=== PATIENT | female | born 1955 | race Caucasian/White ===

== ENCOUNTER 2018-05-15 17:32 | Inpatient (IN) | payer OTHER ==
[~2018-05-15] VITALS: Ht 165.1 cm; Wt 71.7 kg
[~2018-05-15 17:32] MED LIST: CEFDINIR300 MG PO; COLACE100 MG PO; FLEXERIL PO; GABAPENTIN 100100 MG PO; IBUPROFEN 600600 M1 PO; KEFLEX500 MG PO; MACROBID 100 M100 M1 PO; NAPROSYN500 MG PO; NORCO 5-325 TA1 EACH PO; POLYSPORIN OINT15 GM TP; SENNA-DOCUSATE1 EACH PO; TESSALON PERLE100 MG PO; TRAMADOL 50 MG50 MG PO; ZOFRAN ODT4 MG PO
[2018-05-15 17:45] VITALS: BP 153/84
[2018-05-15 18:42] LABS: ABSOLUTE NEUTROPHILS 9.1 thou/uL (1.4-8.2); BASOPHILS 0.6 % (0.0-2.0); EOSINOPHILS 0.6 % (0.0-3.0); HEMATOCRIT 39.8 % (37.0-47.0); LYMPHOCYTES 15.8 % (24.0-44.0); MCHC 35.3 g/dL (28.0-37.0); MCV 93.4 fL (80.0-100.0); MONOCYTES 5.5 % (1.0-8.0); PLATELET COUNT 268 thou/uL (150-400); POLYS 77.5 % (36.0-66.0); RBC 4.26 mil/uL (4.20-5.00); RDW 13.5 % (10.5-14.5); WBC 11.7 thou/uL (4.0-11.0)
[2018-05-15 18:49] LABS: CALCIUM 8.8 mg/dL (8.5-10.1); CREATININE 0.7 mg/dL (0.6-1.0); POTASSIUM 3.6 mmol/L (3.5-5.1)
[2018-05-15 20:03] LABS: URINE CLARITY CLEAR; URINE COLOR YELLOW; URINE GLUCOSE-RANDOM* NEGATIVE (Negative); URINE KETONES 1+ (Negative); URINE PROTEIN (DIPSTICK) NEGATIVE (Negative)
[2018-05-15 20:04] LABS: URINE BILIRUBIN NEGATIVE (Negative); URINE BLOOD 1+ (Negative); URINE LEUKOCYTES-REFLEX TRACE (Negative); URINE NITRITE-REFLEX POSITIVE (Negative); URINE UROBILINOGEN 0.2 E.U./dl (0.2-1.0)
[2018-05-15 20:11] LABS: BACTERIA-REFLEX >30 Many /HPF (None Seen); CASTS None Seen /LPF (None Seen); CRYSTALS None Seen /LPF (None Seen); SQUAMOUS 0-3 Few /LPF (0-3); URINE RBC 0-2 Rare /HPF (0-2); URINE WBC-REFLEX 6-15 Few /HPF (0-5)
[2018-05-15 22:02] VITALS: BP 167/90
[2018-05-16 00:08] LABS: HEMATOCRIT 38.7 % (37.0-47.0); HEMOGLOBIN 13.6 gm/dL (12.0-15.0); MCHC 35.3 g/dL (28.0-37.0); MCV 93.6 fL (80.0-100.0); RBC 4.13 mil/uL (4.20-5.00); RDW 13.3 % (10.5-14.5); WBC 8.9 thou/uL (4.0-11.0)
[2018-05-16 00:20] LABS: CALCIUM 8.3 mg/dL (8.5-10.1); CREATININE 0.6 mg/dL (0.6-1.0); POTASSIUM 3.6 mmol/L (3.5-5.1)
[2018-05-16 03:25] VITALS: BP 130/61
--- NOTE | 2018-05-16 05:49 | NUR ---
PT WAS AN ER PATIENT ADMITTED TO THE UNIT AT 2210. PT IS ALERT AND ORIENTED WITH NO SIGN OF DISTRESS NOTED. PT IS DEAF THEREBY REQUIRING THE SERVICES OF AN BRUSH LOADER AND HANDLE ATTACHER. PT NEEDS AN INTERPERTER UPON INTERACTION WITH PT FAMILY AT BEDSIDE. ADMISSION ASSESSMENT AND EDUCATION COMPLETED WITH THE HELP OF BRUSH LOADER AND HANDLE ATTACHER AND FAMILY. PT IS STABLE AND VITAL SIGNS STABLE. PT IS PLACED ON OXYGEN. PAIN MED ADMINISTERED TO PT DUE TO HEADACHE PRESENT. DENIES ANY FURTHER NEEDS AT THIS TIME.
[2018-05-16 08:05] VITALS: BP 134/61
--- NOTE | 2018-05-16 08:37 | EKG ---
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 : 1955 Requested By: Oscar Thompson Order Number: [id number] MD: Ervin Calle Measurements Intervals [place] Rate: 99 P: 75 VA: 115 QRS: 64 QRSD: 82 T: 29 QT: 336 QTc: 432 Interpretive Statements Sinus rhythm Nonspecific ST segment abnormality Compared to ECG 09/18/2015 19:58:06 Sinus tachycardia no longer present Electronically Signed On 05-16-2018 8:37:00 HOME OFFICE REPRESENTATIVE by Ervin Calle [email or web address] <ELECTRONICALLY SIGNED> By: Ervin Calle MD, [facility] 05/16/18 0837 15 15 Ervin Calle MD, FAC /EPI
[2018-05-16 12:00] VITALS: BP 112/63
[2018-05-16 12:20] VITALS: BP 134/57
[2018-05-16 15:45] VITALS: BP 139/79
--- NOTE | 2018-05-16 16:47 | NUR ---
met with patient. She admits with PNA/UTI. Patient is deaf, she writes information. Patient resides at home with sister, her son, his 2 children ages 5 and 2 years and her spouse. She uses a cane as needed. She is currently on oxygen and does not have at home. She reports all very supportive at home. [facility] following for dc needs. Therapy evals in process and she is currently on oxygen which she does not have at home.
--- NOTE | 2018-05-16 16:57 | NUR ---
PT CARE ASSUMED APPROX 0700. PT ALERT AND ORIENTED X4. DENIES SOA. C/O HEADACHE 08/02. RELIEVED WITH HYDROCODONE. VSS. UP WITH SBA AND CANE. [facility]SFERRED TO [facility] PER DR DOTSON ORDER. REPORT CALLED AND RECEIVING NURSE DENIES QUESTIONS OR CONCERNS REGARDING PT OR POC. COMMUNICATING WITH PT IN WRITING. SHE DENIES NEEDING PORTABLE MACHINE SANDER. PT DENIES QUESTIONS OR CONCERNS REGARDING POC AND SAYS SHE'LL NOTIFY HER SON OF HER NEW ROOM DUE TO ONLY WAY TO CONTACT HIM IS THROUGH [facility] MESSENGER. ALL BELONGINGS TRANSFERRED WITH PT. NO DISTRESS NOTED THIS SHIFT.
--- NOTE | 2018-05-16 17:09 | NUR ---
RECEIVED PT FROM CCU AT 1700. PT ORIENTED TO ROOM AND CALL LIGHT. ASSISTED PT TO BATHROOM WITHOUT OXYGEN. O2 SAT AFTER WALKING TO AND FROM BATHROOM ON ROOM AIR WAS 96%. WILL LEAVE PT OFF O2 AT THIS TIME AND CONTINUE TO MONITOR.
[2018-05-16 17:34] VITALS: BP 156/86
[2018-05-17 06:59] LABS: HEMOGLOBIN 12.9 gm/dL (12.0-15.0); MCHC 34.9 g/dL (28.0-37.0); MCV 94.7 fL (80.0-100.0); RBC 3.91 mil/uL (4.20-5.00); WBC 7.9 thou/uL (4.0-11.0)
[2018-05-17 07:16] LABS: CALCIUM 8.7 mg/dL (8.5-10.1); CREATININE 0.6 mg/dL (0.6-1.0)
[2018-05-17 07:47] VITALS: BP 162/79
--- NOTE | 2018-05-17 07:48 | NUR ---
PATIENTS CARES WERE ASSUMED AT SHIFT CHANGE. PATIENT WAS ASSESSED AND MEDS WERE PASSED. PATIENT REQUESTED TO HAVE THIS IV OUT DUE TO A BURNING SENSATION. ORDER TO LET IV STAY OUT CAME FROM DR. ROLLINS. PATIENT APPERED TO HAVE A RESTFUL NIGHT. HOURLY ROUNDS WERE DONE. THE BED IS IN A LOW AND LOCKED POSITION
--- NOTE | 2018-05-17 11:35 | NUR ---
ASSUMED CARE OF PATIENT THIS MORNING. SHE IS ALERT AND ORIENTED. SHE IS DEAF AND ABLE TO COMMUNICATE PER GESTURES OR WRITTEN WORDS. NIGHT NURSE ORIGINALLY CALLED PHYSICIAN TO HAVE IV DC'D AND PHYSICIAN OK'D THE DECISION. BUT, AFTER THE PHYSICIAN ROUNDED ON PATIENT AND REALIZED SHE HAD IV ANTIBIOTICS NEEDING TO BE INFUSED, HE DETERMINED SHE DOES NEED IV ACCESS . SHE DOES NOT CURRENTLY COMPLAIN OF ANY PAIN. SHE AMBULATES WITH HER WALKER. PATIENT IS CURRENTLY SITTING ON THE SIDE OF THE BED.
--- NOTE | 2018-05-17 14:22 | NUR ---
CALLED IV TEAM TO INSERT NEW IV ON PATIENT SO ANTIBIOTICS CAN CONTINUE RUNNING. IV IN LEFT HAND CAUSED DISCOMFORT.
[2018-05-17 20:01] VITALS: BP 146/77
--- NOTE | 2018-05-18 03:15 | NUR ---
PATIENT APPEARS TO BE ALERT AND ORIENTED X4. THIS IS HARD TO BE COMPLETELY D/T THE FACT THAT THE PATIENT IS DEAF. SHE COMMUNICATES BY JESTERS, WRITING AND READING LIPS. SHE HAD A DRY HACKING COUGH TO THE POINT SHE COULD NOT SLEEP. CALLED THE REACTOR FUELING SUPERVISOR AND RECIEVED AN ORDER FOR BENZONATATE. THIS WORKED GREAT AND THE PATIENT WAS ABLE TO GET SOME SLEEP. C/O MILD PAIN IN HER LOWER LEFT QUAD OF HER ABD.
[2018-05-18 07:57] VITALS: BP 155/78
--- NOTE | 2018-05-18 10:47 | NUR ---
DISCHARGE NOTE: SW reviewed chart and spoke with nursing and attending physician. Pt was [facility] to [facility] from and is medically stable for discharge home today. Pt's family will provide transportation home. No SW discharge needs identified at this time, but is available to assist should needs arise.
--- NOTE | 2018-05-18 12:40 | NUR ---
ASSUMED CARE OF PATIENT THIS MORNING. PATIENT IS A&OX4. PATIENT IS NONVERBAL. SHE HAS CONGENITAL DEAFNESS. PATIENT COMPLAINS OF NO PAIN. SHE IS WANTING TO GO HOME TODAY. PATIENT AMBULATES STEADY WITH A CANE. SHE REFUSED HER MORNING BREATHING TREATMENTS, CAUSES TOO MUCH COUGHING, AND SORENESS. ONE DOSE OF CEFTIAXONE INFUSED THIS MORNING. PATIENT IS CURRENTLY SITTING IN BED WITH CALL LIGHT WITHIN REACH. SHE COMMUNICATES WITH HAD GESTURES AND PEN AND PAPER.
[2018-05-18] MEDS ORDERED: MUCINEX600 MG PO (12:48)
[2018-05-18] MEDS ORDERED: CEFDINIR300 MG PO (12:49)
[2018-05-18] MEDS ORDERED: AZITHROMYCIN 2250 MG PO (12:49)
[2018-05-18 13:39] VITALS: BP 155/78
--- NOTE | 2018-05-18 15:34 | NUR ---
PATIENT BEING DISCHARGED HOME WITH SELF CARE. WILL FOLLOW UP WITH PCP. PATIENT'S IV WAS REMOVED. SHE IS BEING SENT HOME WITH THREE PRESCRIPTIONS. VOLUNTEER TRANSPORT WHEELED PATIENT TO EXIT AND PATIENT LEFT WITH HER SISTER.
== END 2018-05-18 15:50 | disposition home or self-care (01) | DRG 193 ==
LOC: ER 17:32 → EROBS 21:09 → SICU 21:09 → 2N 21:09 → SICU 05-16 16:53 → ENTRNSPT 05-18 15:31 → EDTRNSPTSTS 05-18 15:33 → SICU 05-18 15:50
PROVIDERS: Emergency Medicine; Nurse Practitioner Family; ADMIT Hospitalist
DX: J18.9 Pneumonia, unspecified organism (principal); J96.01 Acute respiratory failure with hypoxia; N39.0 Urinary tract infection, site not specified; Z96.642 Presence of left artificial hip joint; F17.210 Nicotine dependence, cigarettes, uncomplicated; M19.90 Unspecified osteoarthritis, unspecified site; H91.3 Deaf nonspeaking, not elsewhere classified; Z23 Encounter for immunization; Z90.710 Acquired absence of both cervix and uterus; Z88.6 Allergy status to analgesic agent; Z79.899 Other long term (current) drug therapy
CPT/HCPCS: 10194; 15002

== ENCOUNTER 2019-06-05 17:22 | Emergency (ER) | payer OTHER ==
[~2019-06-05] VITALS: Ht 162.6 cm; Wt 77.1 kg
[~2019-06-05 17:22] MED LIST changes: +AZITHROMYCIN 2250 MG PO; +MUCINEX600 MG PO
[2019-06-05 17:25] VITALS: BP 164/82
[2019-06-05 20:47] LABS: HEMATOCRIT 40.8 % (37.0-47.0); HEMOGLOBIN 14.1 gm/dL (12.0-15.0); MCH 32.6 pg (26.0-34.0); MCHC 34.6 g/dL (28.0-37.0); MCV 94.2 fL (80.0-100.0); RBC 4.33 mil/uL (4.20-5.00); RDW 13.2 % (10.5-14.5); WBC 7.8 thou/uL (4.0-11.0)
[2019-06-05 20:53] LABS: ANION GAP 6 mmol/L (7-16); BUN 21 mg/dL (7-18); CALCIUM 8.8 mg/dL (8.5-10.1); CHLORIDE 103 mmol/L (98-107); CO2 29 mmol/L (21-32); CREATININE 0.6 mg/dL (0.6-1.0); GLUCOSE 96 mg/dL (74-106); SODIUM 138 mmol/L (136-145)
[2019-06-05 21:02] LABS: TROPONIN-I <0.06 ng/mL (<0.06)
[2019-06-05] MEDS ORDERED: PROMETH-CODEIN 65 ML PO (21:17)
--- NOTE | 2019-06-06 12:34 | EKG ---
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: [employer] : 1955 Requested By: Eladio Francisco Order Number: [id number] MD: Ervin Calle Measurements Intervals [place] Rate: 75 P: 72 AR: 118 QRS: 47 QRSD: 87 T: 37 QT: 387 QTc: 433 Interpretive Statements Sinus rhythm Normal tracing Compared to ECG 05/15/2018 18:16:52 ST (T wave) deviation no longer present Electronically Signed On 06-06-2019 8:54:39 FLOOR DIRECTOR by Ervin Calle [email or web address] <ELECTRONICALLY SIGNED> By: Ervin Calle MD, MERGED WITH [facility] 06/06/19 0854 41 41 Ervin Calle MD, MERGED WITH [facility] /EPI
== END 2019-06-05 21:38 | disposition home or self-care (01) ==
LOC: ER 17:22
PROVIDERS: Physician Assistant
DX: R07.9 Chest pain, unspecified (principal); R05 Cough; R50.9 Fever, unspecified; R53.1 Weakness; G43.909 Migraine, unspecified, not intractable, without status migrainosus; F17.210 Nicotine dependence, cigarettes, uncomplicated; Z90.710 Acquired absence of both cervix and uterus; Z96.642 Presence of left artificial hip joint; Z88.6 Allergy status to analgesic agent